=== PATIENT | female | born 1940 | race Caucasian/White ===

== ENCOUNTER → 2017-04-19 | Outpatient (CLI) | payer MEDICARE, BC | LOC: MC.RAD 09:54 | DX: Z12.31 Encounter for screening mammogram for malignant neoplasm of breast (principal) ==

== ENCOUNTER 2017-09-09 07:55 | Day surgery (SDC) | payer MEDICARE, BC ==
[~2017-09-09] VITALS: Ht 157.5 cm; Wt 108.0 kg
[2017-09-09] VITALS (8 sets, daily range): BP systolic 126–177; BP diastolic 55–91; PULSE 62–75; TEMP 98–98.5
[2017-09-09] MEDS ORDERED: LEVOXYL0.1 MG PO (08:41)
[2017-09-09] MEDS ORDERED: ZYLOPRIM 100MG100 MG PO (08:42)
[2017-09-09] MEDS ORDERED: ALDACTONE50 MG PO (08:43)
[2017-09-09] MEDS ORDERED: PROTONIX 40MG T40 MG PO (08:43)
[2017-09-09] MEDS ORDERED: SYSTANE 0.4%-0.1 SOL OP (08:44)
[2017-09-09] MEDS ORDERED: TYLENOL 500MG500 MG PO (08:44)
[2017-09-09] MEDS ORDERED: DIOVAN 160MG160 MG PO (08:45)
[2017-09-09] MEDS ORDERED: ZYRTEC 10MG10 MG PO (08:46)
[2017-09-09] MEDS ORDERED: MIRALAX PA17 GM/Dose PO (08:47)
[2017-09-09 08:48] LABS: HEMOGLOBIN 12.2 g/dl (12.5-16.0); MEAN CELL VOLUME 91 fl (80.0-100.0); MEAN CORPUSCULAR HEMOGLOBIN 31 pg (27.0-31.0); MEAN CORPUSCULAR HGB CONC 34 g/dl (33.0-37.0); MEAN PLATELET VOLUME 10.7 fl (7.4-10.4); PLATELET COUNT 202 K/mm3 (130-400); RED BLOOD COUNT 3.99 M/mm3 (4.10-5.30); REDCELL DISTRIBUTION WIDTH-CV 13.7 % (11.5-14.5)
[2017-09-09 08:51] LABS: HEMATOCRIT 36.4 % (37.0-47.0)
[2017-09-09 08:54] LABS: INR 1.1 (0.8-3.0); PROTHROMBIN TIME 12.3 SECONDS (9.7-12.8)
[2017-09-09 09:00] LABS: CALCIUM 9.7 mg/dL (8.4-10.2); CREATININE, serum 1.31 mg/dL (0.52-1.25); POTASSIUM 4.5 mmol/L (3.4-5.0)
[2017-09-10 00:24] VITALS: BP 118/57; PULSE 60; TEMP 97
[2017-09-10 01:48] VITALS: BP 135/78; PULSE 61; TEMP 97.3
[2017-09-10 04:05] VITALS: BP 135/65; PULSE 59; TEMP 97.6
[2017-09-10 07:50] VITALS: BP 140/69; PULSE 69; TEMP 98.2
[2017-09-10 09:32] LABS: BASO % 0.3 % (0.0-2.0); EOS # 0.2 (0.0-0.7); EOS % 2.8 % (0-4.0); GRAN # 4.5 (1.4-6.5); GRAN % 75.3 % (42.2-75.2); LYMPH # 1.1 (1.2-3.4); LYMPH % 17.8 % (20.0-51.0); MEAN CELL VOLUME 92 fl (80.0-100.0); MEAN CORPUSCULAR HGB CONC 33 g/dl (33.0-37.0); MONO # 0.2 (0.1-0.6); MONO % 3.5 % (1.7-9.3); PLATELET COUNT 174 K/mm3 (130-400); RED BLOOD COUNT 3.91 M/mm3 (4.10-5.30); REDCELL DISTRIBUTION WIDTH-CV 13.9 % (11.5-14.5)
[2017-09-10 09:33] LABS: HEMATOCRIT 36.1 % (37.0-47.0); HEMOGLOBIN 11.8 g/dl (12.5-16.0); MEAN CORPUSCULAR HEMOGLOBIN 30 pg (27.0-31.0)
[2017-09-10 09:40] LABS: CALCIUM 9.5 mg/dL (8.4-10.2); CREATININE, serum 1.24 mg/dL (0.52-1.25); POTASSIUM 4.1 mmol/L (3.4-5.0)
[2017-09-10] MEDS ORDERED: SEPTRA 400 MG-1 TAB PO (09:54)
[2017-09-10 11:35] VITALS: BP 126/89; PULSE 66; TEMP 98
== END 2017-09-10 12:35 | disposition home or self-care (01) ==
LOC: COL.CAR 07:55 → MEDICAL 11:42 → COL.CAR 09-10 12:35
PROVIDERS: Internal Medicine Cardiovascular Disease; Nurse Practitioner
DX: R00.1 Bradycardia, unspecified (principal); I10 Essential (primary) hypertension; E03.9 Hypothyroidism, unspecified; J45.909 Unspecified asthma, uncomplicated; M19.90 Unspecified osteoarthritis, unspecified site; E78.2 Mixed hyperlipidemia; I49.5 Sick sinus syndrome; K21.9 Gastro-esophageal reflux disease without esophagitis; Z90.49 Acquired absence of other specified parts of digestive tract; Z90.710 Acquired absence of both cervix and uterus; Z96.653 Presence of artificial knee joint, bilateral; Z88.0 Allergy status to penicillin; Z88.1 Allergy status to other antibiotic agents; Z88.5 Allergy status to narcotic agent; Z88.8 Allergy status to other drugs, medicaments and biological substances; Z85.3 Personal history of malignant neoplasm of breast
CPT/HCPCS: OP; C1785; C1894; C1898; J2250; J3010; J3370; J7030; J7050

== ENCOUNTER → 2017-09-27 | Outpatient (CLI) | payer MEDICARE, BC ==
[~2017-09-27] MED LIST: ALDACTONE50 MG PO; DIOVAN 160MG160 MG PO; LEVOXYL0.1 MG PO; MIRALAX PA17 GM/Dose PO; PROTONIX 40MG T40 MG PO; SEPTRA 400 MG-1 TAB PO; SYSTANE 0.4%-0.1 SOL OP; TYLENOL 500MG500 MG PO; ZYLOPRIM 100MG100 MG PO; ZYRTEC 10MG10 MG PO
== END ==
LOC: COL.VAS 15:44
DX: M79.89 Other specified soft tissue disorders (principal)

== ENCOUNTER → 2018-02-25 | Outpatient (CLI) | payer MEDICARE, BC | LOC: MC.RAD 09:26 | DX: Z12.31 Encounter for screening mammogram for malignant neoplasm of breast (principal); Z98.890 Other specified postprocedural states ==

== ENCOUNTER → 2019-03-29 | Outpatient (CLI) | payer MEDICARE, BC | LOC: MC.RAD 07:37 | DX: Z12.31 Encounter for screening mammogram for malignant neoplasm of breast (principal) ==

== ENCOUNTER 2019-04-18 11:24 | Emergency (ER) | payer MEDICARE, BC ==
[~2019-04-18] VITALS: Ht 157.5 cm; Wt 113.6 kg
[2019-04-18 11:34] VITALS: TEMP 98.2
[2019-04-18 12:42] LABS: BASO % 0.2 % (0.0-2.0); EOS # 0.1 (0.0-0.7); GRAN # 10.1 (1.4-6.5); GRAN % 80.8 % (42.2-75.2); HEMATOCRIT 39.7 % (37.0-47.0); HEMOGLOBIN 12.9 g/dl (12.5-16.0); LYMPH # 1.6 (1.2-3.4); LYMPH % 12.6 % (20.0-51.0); MEAN CELL VOLUME 93 fl (80.0-100.0); MEAN CORPUSCULAR HEMOGLOBIN 30 pg (27.0-31.0); MEAN CORPUSCULAR HGB CONC 33 g/dl (33.0-37.0); MEAN PLATELET VOLUME 11.7 fl (7.4-10.4); MONO # 0.6 (0.1-0.6); MONO % 5.1 % (1.7-9.3); PLATELET COUNT 165 K/mm3 (130-400); RED BLOOD COUNT 4.28 M/mm3 (4.10-5.30); REDCELL DISTRIBUTION WIDTH-CV 13.9 % (11.5-14.5)
[2019-04-18 12:56] LABS: PROTHROMBIN TIME 11.5 SECONDS (9.7-12.8)
[2019-04-18 12:59] LABS: PARTIAL THROMBOPLASTIN TIME 31.6 SECONDS (26.0-37.0)
[2019-04-18 13:05] LABS: ALANINE AMINOTRANSFERASE 15 U/L (9-52); ALBUMIN 4.2 gm/dL (3.5-5.0); ALKALINE PHOSPHATASE 104 U/L (50-136); ANION GAP 9 mmol/L (7-16); AST,SGOT 21 U/L (15-37); BLOOD UREA NITROGEN 15 mg/dL (7-17); CALCIUM 9.8 mg/dL (8.4-10.2); CARBON DIOXIDE 29 mmol/L (22-30); CHLORIDE 105 mmol/L (98-107); CREATININE, serum 1.52 (0.52-1.25); GLUCOSE 95 mg/dL (74-106); POTASSIUM 4.5 mmol/L (3.4-5.0); SODIUM 142 mmol/L (137-145); TOTAL PROTEIN 7.3 gm/dL (6.4-8.2)
[2019-04-18 13:17] LABS: TROPONIN-I < 0.012 ng/mL (0.000-0.035)
[2019-04-18 16:33] VITALS: BP 127/85; PULSE 74
== END 2019-04-18 16:42 | disposition home or self-care (01) ==
LOC: COL.ER 11:24
PROVIDERS: Family Medicine
DX: R09.1 Pleurisy (principal); I10 Essential (primary) hypertension; Z95.0 Presence of cardiac pacemaker
CPT/HCPCS: J3010

== ENCOUNTER → 2020-11-19 | Outpatient (CLI) | payer MEDICARE, BC | LOC: COL.RAD 09:19 | DX: K21.9 Gastro-esophageal reflux disease without esophagitis (principal) ==

== ENCOUNTER → 2021-04-21 | Outpatient (CLI) | payer MEDICARE, BC ==
--- NOTE | 2021-04-09 11:05 | NUR ---
PT WAS A NO CALL, NO SHOW
== END ==
LOC: COL.RAD 04-09 10:30
DX: I25.9 Chronic ischemic heart disease, unspecified (principal); R43.2 Parageusia; R43.9 Unspecified disturbances of smell and taste; Z85.3 Personal history of malignant neoplasm of breast; R26.81 Unsteadiness on feet
CPT/HCPCS: A9585

== ENCOUNTER → 2021-04-24 | Outpatient (CLI) | payer MEDICARE, BC | LOC: MC.RAD 12:54 | DX: N60.41 Mammary duct ectasia of right breast (principal) ==

== ENCOUNTER 2021-10-31 08:40 | Day surgery (SDC) | payer MEDICARE, BC ==
[~2021-10-31] VITALS: Ht 157.6 cm; Wt 110.5 kg
[2021-10-31] VITALS (11 sets, daily range): BP systolic 112–162; BP diastolic 63–85; PULSE 69–72; TEMP 98.6
[~2021-10-31 08:40] MED LIST changes: +ALDACTONE 25MG25 M1 PO; -ALDACTONE50 MG PO
[2021-10-31 09:26] LABS: HEMATOCRIT 38.3 % (37.0-47.0); HEMOGLOBIN 12.8 g/dl (12.5-16.0); MEAN CELL VOLUME 91 fl (80.0-100.0); MEAN CORPUSCULAR HEMOGLOBIN 30 pg (27-31); MEAN CORPUSCULAR HGB CONC 33 g/dl (33.0-37.0); PLATELET COUNT 179 K/mm3 (130-400); RED BLOOD COUNT 4.23 M/mm3 (4.10-5.30); REDCELL DISTRIBUTION WIDTH-CV 14.4 % (11.5-14.5)
[2021-10-31 09:38] LABS: INR 1.1 (0.8-3.0); PROTHROMBIN TIME 12.6 SECONDS (9.7-12.8)
[2021-10-31 09:40] LABS: PARTIAL THROMBOPLASTIN TIME 31.7 SECONDS (26.0-37.0)
[2021-10-31] MEDS ORDERED: LIPITOR 10MG10 MG PO (09:41)
[2021-10-31] MEDS ORDERED: SINGULAIR 110 MG/TAB PO (09:41)
[2021-10-31] MEDS ORDERED: ASPIRIN E.C. 8181 MG PO (09:41)
[2021-10-31] MEDS ORDERED: ZEBETA 5MG5 MG PO (09:42)
[2021-10-31] MEDS ORDERED: TRELEGY ELLIPT1 EACH IH (09:43)
[2021-10-31] MEDS ORDERED: COLACE 100100 MG/CAP PO (09:43)
[2021-10-31 09:58] LABS: CALCIUM 9.9 mg/dL (8.4-10.2); CREATININE, serum 1.48 mg/dL (0.57-1.11); POTASSIUM 4.4 mmol/L (3.5-4.5)
--- NOTE | 2021-10-31 10:55 | NUR ---
PATIENT ALERT AND ORIENTED, NO REPORTS OF CHEST PAIN AT THIS TIME. FAMILY IN WIATING ROOM. CONSENT VERIFIED. SEE MERGE FOR DETAILS REGARDING CASE INCLUDING HEMODYNAMIC MONITORING, MEDICATION ADMINISTRATION AND VITALS.
[2021-10-31] MEDS ORDERED: ALDACTONE 25MG25 M1 PO (13:20)
--- NOTE | 2021-10-31 14:25 | NUR ---
DC instructions reviewed with pt and daughter. Both express understanding. Air was removed from TR band in 2ml increments with no bleeding or complications. Rt radial puncture site dressed with folded 2x2 and bandaid. INT DC'd, site wrapped with coban. Pt is steady on feet in room. She has tolerated PO without issue. She is assisted out to daughter's car by wheelchair with belongings.
== END 2021-10-31 14:25 | disposition home or self-care (01) ==
LOC: COL.CAR 08:40
PROVIDERS: Internal Medicine Cardiovascular Disease
DX: I47.2 Ventricular tachycardia (principal); I49.9 Cardiac arrhythmia, unspecified; I15.0 Renovascular hypertension; I48.0 Paroxysmal atrial fibrillation; E78.5 Hyperlipidemia, unspecified; G47.33 Obstructive sleep apnea (adult) (pediatric); Z99.89 Dependence on other enabling machines and devices
CPT/HCPCS: C1769; J1644; J2250; J3010; Q9967

== ENCOUNTER → 2022-02-10 | Outpatient (CLI) | payer MEDICARE, BC ==
[~2022-02-10] MED LIST changes: +ASPIRIN E.C. 8181 MG PO; +COLACE 100100 MG/CAP PO; +LIPITOR 10MG10 MG PO; +SINGULAIR 110 MG/TAB PO; +TRELEGY ELLIPT1 EACH IH; +ZEBETA 5MG5 MG PO
== END ==
LOC: MC.RAD 12:40
DX: R92.8 Other abnormal and inconclusive findings on diagnostic imaging of breast (principal)

== ENCOUNTER → 2024-03-13 | Outpatient (CLI) | payer MEDICARE, BC ==
[~2024-03-13] MED LIST changes: +BREO IH; +Gadoterate 20 ML VIAL IV ONE; +PROLIA60 MG/ML SQ; +VITAMIN D31000 IU PO
== END ==
LOC: COL.RAD 10:27
DX: G31.9 Degenerative disease of nervous system, unspecified (principal)
CPT/HCPCS: A9575